=== PATIENT | male | born 1935 | race Caucasian/White ===

== ENCOUNTER 2017-01-12 23:14 | Inpatient (IN) | payer MEDICARE ==
[~2017-01-12] VITALS: Ht 175.3 cm; Wt 65.3 kg
[2017-01-12] MEDS ORDERED: MAG HYDROX/AL HYDROX/SIMETH 30 ML UDC PO PRN (23:30)
[2017-01-12] MEDS ORDERED: ZOLPIDEM TARTRATE 5 MG TABLET PO PRN (23:30)
[2017-01-12] MEDS ORDERED: MAGNESIUM HYDROXIDE 30 ML UDC PO PRN (23:30)
[2017-01-12] MEDS ORDERED: LORAZEPAM 0.5 MG TABLET PO PRN (23:30)
[2017-01-13 07:24] LABS: BASOPHILS % (AUTO) 0.2 % (0.0-2.0); EOSINOPHILS # (AUTO) 0.3 /CMM (0.0-0.7); EOSINOPHILS % (AUTO) 2.7 % (0.0-6.0); HEMATOCRIT 38 % (39-51); HEMOGLOBIN 12.7 g/dL (13.5-17.5); LYMPHOCYTES # (AUTO) 2.4 /CMM (0.8-4.8); LYMPHOCYTES % (AUTO) 24.5 % (20.0-44.0); MEAN CORPUSCULAR HEMOGLOBIN 32 PG (26.0-33.0); MEAN CORPUSCULAR HGB CONC 34 g/dl (31.0-36.0); MEAN CORPUSCULAR VOLUME 96 fL (80-96); MONOCYTES # (AUTO) 0.9 /CMM (0.1-1.30); NEUTROPHILS # (AUTO) 6.3 /CMM (1.8-8.9); NEUTROPHILS % (AUTO) 63.6 % (43.0-81.0); PLATELET COUNT (AUTO) 240 /CMM (150-450); RDW COEFFICIENT OF VARIATION 13.5 (11.5-15.0); RED BLOOD CELL COUNT(AUTO) 3.94 MIL/uL (4.5-6.0); WHITE BLOOD COUNT (AUTO) 9.9 K/uL (4.3-11.0)
[2017-01-13 07:53] LABS: CHOLESTEROL 140 mg/dL (<200); HDL CHOLESTEROL 69 mg/dL (40-60); LDL 64 mg/dL (0-99); TRIGLYCERIDES 69 mg/dL (30-150)
[2017-01-13 07:57] LABS: ALANINE AMINOTRANSFERASE 29 U/L (12-78); ALBUMIN 3.7 g/dL (3.4-5.0); ALKALINE PHOSPHATASE 75 U/L (46-116); ASPARTATE AMINOTRANSFERASE 18 U/L (15-37); BILIRUBIN,TOTAL 0.3 mg/dL (0.2-1.0); CALCIUM, SERUM 9.4 mg/dL (8.5-10.1); CARBON DIOXIDE 31 mmol/L (21-32); CHLORIDE 107 mmol/L (98-107); CREATININE 0.8 mg/dL (0.6-1.3); GLUCOSE 83 mg/dL (74-106); POTASSIUM 3.9 mmol/L (3.5-5.1); SODIUM SERUM 145 mmol/L (136-145); TOTAL PROTEIN, SERUM 7.2 g/dL (6.4-8.2); UREA NITROGEN, BLOOD 12 mg/dL (7-18)
[2017-01-13 08:00] VITALS: BP 130/73
[2017-01-13] MEDS: BENZTROPINE MESYLATE (1 MG) 1 MG TABLET PO SCH ×2 (11:22→17:02)
[2017-01-13] MEDS: HALOPERIDOL 5 MG TABLET PO SCH ×2 (11:22→17:02)
[2017-01-13 16:00] VITALS: BP 132/73
[2017-01-13] MEDS: ACETAMINOPHEN 325 MG TABLET PO PRN (19:40)
[2017-01-13 20:13] VITALS: BP 144/96
[2017-01-14 08:00] VITALS: BP 128/69
[2017-01-14] MEDS: BENZTROPINE MESYLATE (1 MG) 1 MG TABLET PO SCH ×2 (08:39→16:58)
[2017-01-14] MEDS: HALOPERIDOL 5 MG TABLET PO SCH ×2 (08:39→16:58)
[2017-01-14 16:00] VITALS: BP 100/58
[2017-01-14 22:22] VITALS: BP 120/72
[2017-01-15] MEDS: ACETAMINOPHEN 325 MG TABLET PO PRN (01:18)
[2017-01-15] MEDS: BENZTROPINE MESYLATE (1 MG) 1 MG TABLET PO SCH ×2 (07:58→16:16)
[2017-01-15] MEDS: HALOPERIDOL 5 MG TABLET PO SCH (07:58)
[2017-01-15 08:00] VITALS: BP 120/71
[2017-01-15] MEDS: HALOPERIDOL 1 MG TABLET PO SCH ×3 (12:09→21:42)
[2017-01-15 16:00] VITALS: BP 130/74
[2017-01-15 20:14] VITALS: BP 117/78
[2017-01-16 08:00] VITALS: BP 124/89
[2017-01-16] MEDS: BENZTROPINE MESYLATE (1 MG) 1 MG TABLET PO SCH ×2 (08:05→16:08)
[2017-01-16] MEDS: HALOPERIDOL 1 MG TABLET PO SCH ×4 (08:06→16:08)
[2017-01-16 16:08] VITALS: BP 106/66
[2017-01-16] MEDS: ACETAMINOPHEN 325 MG TABLET PO PRN (20:07)
[2017-01-16 20:12] VITALS: BP 124/79
[2017-01-17] MEDS ORDERED: Z GUARD REMEDY 4 OZ OINT TP PRN (06:00)
[2017-01-17 08:00] VITALS: BP 145/85
[2017-01-17] MEDS: HALOPERIDOL 1 MG TABLET PO SCH ×3 (08:33→16:23)
[2017-01-17] MEDS: BENZTROPINE MESYLATE (1 MG) 1 MG TABLET PO SCH ×2 (08:33→16:23)
[2017-01-17 15:41] VITALS: BP 139/81
[2017-01-17 20:00] VITALS: BP 102/65
[2017-01-18 08:00] VITALS: BP 143/84
[2017-01-18] MEDS: HALOPERIDOL 1 MG TABLET PO SCH ×3 (08:29→16:35)
[2017-01-18] MEDS: BENZTROPINE MESYLATE (1 MG) 1 MG TABLET PO SCH ×2 (08:29→16:35)
[2017-01-18 15:58] VITALS: BP 131/67
[2017-01-18 20:00] VITALS: BP 107/62
[2017-01-19 08:00] VITALS: BP 129/69
[2017-01-19] MEDS: HALOPERIDOL 1 MG TABLET PO SCH ×3 (08:30→16:32)
[2017-01-19] MEDS: BENZTROPINE MESYLATE (1 MG) 1 MG TABLET PO SCH ×2 (08:30→16:32)
[2017-01-19] MEDS: ACETAMINOPHEN 325 MG TABLET PO PRN ×2 (13:56→20:55)
[2017-01-19 16:00] VITALS: BP 104/68
[2017-01-19 20:00] VITALS: BP 116/64
[2017-01-20 07:50] VITALS: BP 123/84
[2017-01-20] MEDS: HALOPERIDOL 1 MG TABLET PO SCH ×3 (08:22→17:21)
[2017-01-20] MEDS: BENZTROPINE MESYLATE (1 MG) 1 MG TABLET PO SCH ×2 (08:22→17:21)
[2017-01-20 15:47] VITALS: BP 118/84
[2017-01-20] MEDS: ACETAMINOPHEN 325 MG TABLET PO PRN (17:29)
[2017-01-20 20:07] VITALS: BP 99/50
[2017-01-21] MEDS: BENZTROPINE MESYLATE (1 MG) 1 MG TABLET PO SCH ×2 (07:59→16:10)
[2017-01-21 08:00] VITALS: BP 143/76
[2017-01-21] MEDS: HALOPERIDOL 1 MG TABLET PO SCH ×4 (08:01→21:09)
[2017-01-21] MEDS: ACETAMINOPHEN 325 MG TABLET PO PRN (08:02)
[2017-01-21 16:00] VITALS: BP 113/69
[2017-01-21 19:36] VITALS: BP 116/67
[2017-01-22 08:00] VITALS: BP 119/71
[2017-01-22] MEDS: BENZTROPINE MESYLATE (1 MG) 1 MG TABLET PO SCH ×2 (08:18→16:23)
[2017-01-22] MEDS: HALOPERIDOL 1 MG TABLET PO SCH ×4 (08:19→20:38)
[2017-01-22 16:11] VITALS: BP 121/77
[2017-01-22 20:38] VITALS: BP 119/71
[2017-01-22 20:40] VITALS: BP 119/71
[2017-01-23 08:00] VITALS: BP 121/77
[2017-01-23] MEDS: HALOPERIDOL 1 MG TABLET PO SCH ×2 (08:10→13:36)
[2017-01-23] MEDS: BENZTROPINE MESYLATE (1 MG) 1 MG TABLET PO SCH (08:10)
== END 2017-01-23 14:00 | DRG 885 ==
LOC: GPS 23:14
PROVIDERS: ADMIT Psychiatry & Neurology Psychiatry; ATTEND Internal Medicine
DX: F29 Unspecified psychosis not due to a substance or known physiological condition (principal); F03.91 Unspecified dementia, unspecified severity, with behavioral disturbance; F20.0 Paranoid schizophrenia; G89.4 Chronic pain syndrome
CPT/HCPCS: 36415; 80053-TC; 80061-TC; 85025-TC; 87081-TC; Z7610